=== PATIENT | male | born 1980 | race African-American/Black ===

== ENCOUNTER 2020-08-21 19:51 | Inpatient (IN) | payer OTHER, SELFPAY ==
[~2020-08-21] VITALS: Ht 172.7 cm; Wt 121.0 kg
[2020-08-21 23:00] VITALS: BP 164/88
[2020-08-21] MEDS ORDERED: ONDA8TAB8 PO (23:35)
[2020-08-21] MEDS ORDERED: CHLO25TA PO (23:35)
[2020-08-21] MEDS ORDERED: LORA-674 PO (23:35)
[2020-08-21] MEDS ORDERED: VITMTA PO (23:35)
[2020-08-21] MEDS ORDERED: HYDR50TA70 PO (23:35)
[2020-08-21] MEDS ORDERED: SERT50TA29 PO (23:35)
[2020-08-22] MEDS ORDERED: MAALOX 30 ML SUSP *UDC PO PRN (00:30)
[2020-08-22] MEDS ORDERED: ACETAMINOPHEN TAB 650MG DOSE (2X325MG) PO PRN (00:30)
[2020-08-22] MEDS ORDERED: NS 1,000 ML IV SCH ×2 (00:30→04:30)
[2020-08-22] MEDS ORDERED: ONDANSETRON 4MG/2ML VIAL IV PRN (00:30)
[2020-08-22] MEDS ORDERED: MOM 30ML SUSPENSION UDC PO PRN (00:30)
[2020-08-22 00:50] VITALS: BP 178/92
[2020-08-22 01:13] LABS: HEMATOCRIT 46.3 % (42.0-52.0); MEAN CORPUSCULAR HEMOGLOBIN 29.8 pg (27.0-33.0); MEAN CORPUSCULAR HGB CONC 32.4 g/dl (32.0-36.5); MEAN CORPUSCULAR VOLUME 91.9 fl (80.0-96.0); PLATELET COUNT, AUTOMATED 339 10^3/uL (150-450); RED BLOOD COUNT 5.04 10^6/uL (4.30-6.10)
[2020-08-22 01:29] LABS: ALBUMIN 4.1 GM/DL (3.2-5.2); ALT/SGPT 118 U/L (12-78); BILIRUBIN,TOTAL 0.6 MG/DL (0.2-1.0); BLOOD UREA NITROGEN 10 MG/DL (7-18); CALCIUM LEVEL 9.8 MG/DL (8.5-10.1); CARBON DIOXIDE LEVEL 27 MEQ/L (21-32); CHLORIDE LEVEL 103 MEQ/L (98-107); CREATININE FOR GFR 1.11 MG/DL (0.70-1.30); GLOMERULAR FILTRATION RATE > 60.0 (>60); GLUCOSE, FASTING 98 MG/DL (70-100); POTASSIUM SERUM 3.8 MEQ/L (3.5-5.1); SODIUM LEVEL 139 MEQ/L (136-145)
[2020-08-22 02:12] LABS: HEMOGLOBIN A1c 5.5 %
[2020-08-22] MEDS ORDERED: hydrOXYzine 50 MG TAB PO PRN (03:00)
--- NOTE | 2020-08-22 03:00 | HPEPDOC ---
[facility] Medical History & Physical Date of Admission Aug 22, 2020 Date of Service: Aug 22, [address] Stephan Jean M.D. General Surgery Attending Physician: TARI GARCIA MD History and Physical CHIEF COMPLAINT: Abdominal pain with nausea and vomiting HISTORY OF PRESENT ILLNESS: is a 40yo male with notable PMHx of HTN and anxiety who originally presented to [facility] on the afternoon of 08/21/2020 c/o diffuse, continuous abdominal pain with nausea and vomiting. He states that beginning on 08/19, he became quite nauseous after drinking his usual cup of vodka. During the day, he took a shot of alcohol and became nauseous again and this time ex perienced nonbloody emesis. On 08/20, he drank again, and again had emesis. On the morning of 08/21, he woke up around 4:30 AM with whole belly pain that was continuous. The pain was severe enough to force him to curl up on the floor. It was at this point in the day on 08/21 (about 2:30 PM) that he decided to head to [facility]. While en route to [place], he developed paresthesias of bilateral hands and feet. Once at [facility], he had another episode of emesis and was found to be hypertensive. He underwent imaging in the form of a CT abdomen and pelvis that showed moderate fatty infiltrate and supraumbilical hernia without incarceration or obstruction. He subsequently had an improvement in symptoms and no longer was feeling nauseated. The [place] provider contacted the [facility] on-call surgeon (Dr. Jean), and plan was to have patient follow-up as an outpatient. Unfortunately, he then developed a worsening of his abdominal pain and had another episode of emesis. He was at this point that Dr. Jean was contacted again and agreed to have the patient transferred to [facility] for further evaluation and to see him in consultation. Notable labs at [facility] included leukocytosis (WBC 12.9), transaminitis (ALT 151, AST 106), positive UDS for THC, ketonuria, and elevated anion gap (18). Upon presentation via transferred [facility], patient's abdominal pain was well- controlled and he was no longer feeling nauseated. He had been given a 0.2 mg dose of clonidine at [facility] for his elevated pressures, but likely vomited this out. He remained hypertensive with systolics ranging from 150s- 170s. Repeat CBC and CMP ordered. In the event surgical intervention is deemed warranted, the patient was preemptively placed on npo diet except meds, sips and chips. Upon transfer, patient confirms he is a full code. Denies any known drug or environmental allergies. PAST MEDICAL HISTORY: Essential hypertension Anxiety PAST SURGICAL HISTORY: Right shoulder surgery for rotator cuff and bony debris removal, occurred at least 10 or more years ago SOCIAL HISTORY: Lives in [place], [place] and works in the [employer] FAMILY HISTORY: Father: Hypertension Mother: CVA, hypertension One brother, NH, one brother hypertension ALLERGIES: Please see below. REVIEW OF SYSTEMS: CONSTITUTIONAL: Reports roughly 20 pound weight loss over the last 3 months and starting new behavioral health meds. Reports night sweats for the past month. Denies feeling feverish or chills EYES: Denies eye pain, visual changes ENT: Denies rhinorrhea, ear pain, tinnitus, dysphagia, or odynophagia CARDIOVASCULAR: Denies chest pain, as pressure, or palpitations RESPIRATORY: Denies cough, soreness of breath, or pleuritic chest pain GASTROINTESTINAL: Reports abdominal pain, nausea, and vomiting as detailed in HPI GENITOURINARY: Denies dysuria or hematuria NEUROLOGY: Reports hand and foot paresthesias since improved. Denies syncope, dizziness, loss of consciousness PSYCHIATRIC: Reports anxiety and associated depression per baseline. HOME MEDICATIONS: Please see below. PHYSICAL EXAMINATION: VITAL SIGNS: Temperature 98.3, pulse 104, respiratory rate 20, blood pressure 156/90, pulse oximetry 98% on room air. GENERAL: Pleasant, -Thai male lying in bed. No acute distress. Alert and oriented 3. HEENT: Normocephalic, atraumatic. Bilateral erythema of sclera with no appreciated icterus. No conjunctival pallor. Dry mucous membranes. No pharyngeal erythema or exudate. NECK: Supple. Trachea midline. No lymphadenopathy. RESPIRATORY: Bandar, diminished tidal volume with no appreciated adventitious breath sounds. Breathing room air. Speaking full sentences. CARDIOVASCULAR: Tachycardic rate, regular rhythm. Normal S1, S2. Murmur or rubs appreciated. ABDOMEN: Soft, obese. Moderate tenderness of the epigastrium and right lower quadrant. No guarding or rigidity. No tympany to percussion. Hypoactive bowel sounds present. EXTREMITIES: Bilateral lower extremities are free of edema. No clubbing or cyanosis. NEUROLOGICAL: Awake, alert and oriented 3. No focal neurologic deficits appr eciated. Non-dysarthric speech. PSYCHIATRIC: Mood and affect appear appropriate LABORATORY DATA: Please see below. IMAGING: CT abdomen and pelvis without IV contrast, 08/21/20 (*this was performed at [facility], [place], [place]) Reading impression from radiologist, Dr. Emerita M.D.: "2.5 cm fatcontaining supraumbilical hernia with some stranding consistent with inflammatory or ischemic changes of the herniated fat. Moderate fatty infiltration of the liver." MICROBIOLOGY: Please see below. ASSESSMENT & PLAN: This is a 40yo male w/ notable h/o HTN and anxiety who presented to [facility] in [place], [place] on 08/21/2020 with a chief complaints of diffuse continuous abdominal pain with nausea and vomiting that had progressed over the prior [address] abdomen and pelvis showed fatty liver as well as a supraumbilical hernia with some inflammatory/ischemic changes of herniated fat but not incarceration or strangulation. The [place] physician contacted Dr. Jean of [facility] general surgery service or guarding. Possible transfer, but at that initial time, patient's symptoms had improved to the point he was going to follow up as outpatient. Patient's symptoms subsequently worsened and he vomited again, ultimately prompting decision to transfer to [facility] for further evaluation for possible surgical intervention. #Abdominal pain with nausea and vomiting 2/2 gastroenteritis vs supraumbilical hernia with possible resolution of bowel incarceration vs gastroparesis -CT abdomen/pelvis at [facility] showed fatty liver and supraumbilical hernia with no incarceration or obstruction -WBC at [place] of 12.9; WBC was 14 after transfer to [facility]; Lactic 1.1 after transfer; pt afebrile -General surgery consultation (Dr. Jean) placed upon request of Dr. Jean after he collaboratively approved pt transfer with Dr. Bernardo at [place] -In the event surgical intervention is warranted, patient placed on NPO diet except for meds and sips/chips -Zofran ordered -Important to note that upon discharge, workup for uninvestigated dyspepsia may be warranted as patient is less than 60 years old, has had 20 pound weight loss over the past 3 months -IVF were initially held in the setting of hypertensive pressures #Transaminitis -ALT 151, AST 106 at [place]; after transfer to [facility], repeat measurement showed ALT 118, AST 61 -This is most likely secondary to patient's fatty liver; differential in addition to fatty liver includes viral and alcoholic hepatitis in setting of patient's alcohol use #Leukocytosis likely 2/2 GI inflammatory process -WBC at [place] of 12.9; WBC was 14 after transfer to [facility] -Lactic acid after transfer was 1.1; pt afebrile -IVF deferred in setting of elevated pressures and tachycardia upon transfer #Fatty liver -Seen on CT abdomen and pelvis at [facility]; described as a "moderate fatty infiltration." -Patient is a daily drinker and obese (BMI 40) #Essential hypertension -Patient was hypertensive upon transfer with systolics initially in the upper 170s that spontaneously came down to the 150s. -Patient's home chlorthalidone continued. He is also on hydroxyzine prn for anxiety, and this was continued as well -one-time dose of amlodipine ordered #Anxiety -Home sertraline and hydroxyzine continued -pt reports an unintentional 20 pound weight loss #Active smoker -Patient smokes 3-4 cigarettes per day, as well as marijuana -Smoking education ordered #Marijuana use -Positive THC on drug screen at [facility] -Patient reports smoking marijuana on most days -Marijuana may be contributing to patient's resenting emesis #Morbid obesity, BMI 40 -patient reports 20 pound weight loss over last 3 months -possible factor in fatty liver #DVT prophylaxis: TEDs and SCDs; AC deferred at admission in event surgical int ervention is deemed warranted Disposition: pending improvement with bowel rest and surgical evaluation Vital Signs Vital Signs Date Time Temp Pulse Resp B/P (MAP) Pulse Ox O2 Delivery O2 Flow Rate FiO2 08/22/20 00:50 118 178/92 (120) 08/21/20 23:00 98.3 20 98 Room Air Laboratory Data Labs 24H Laboratory Tests 2 08/22/20 00:49: Nucleated Red Blood Cells % (auto) 0.0, Anion Gap 9, Glomerular Filtration Rate > 60.0, Estimated Mean Plasma Glucose 111H, Hemoglobin A1c 5.5, Calcium Level 9.8, Total Bilirubin 0.6, Aspartate Amino Transf (AST/SGOT) 61H, Alanine Aminotransferase (ALT/SGPT) 118H, Alkaline Phosphatase 81, Total Protein 8.0, Albumin 4.1, Albumin/Globulin Ratio 1.1 CBC/BMP Laboratory Tests 08/22/20 00:49 Home Medications Scheduled Chlorthalidone (Chlorthalidone) 25 Mg Tablet, 25 MG PO DAILY Loratadine (Loratadine) 10 Mg Tablet, 10 MG PO DAILY Multivitamins (Thera M Plus Tablet) 1 Each Tablet, 1 TAB PO DAILY Omeprazole (Omeprazole) 40 Mg Capsule.dr, 40 MG PO DAILY Sertraline HCl (Sertraline HCl) 50 Mg Tablet, 50 MG PO DAILY Scheduled PRN Hydroxyzine HCl (Hydroxyzine HCl) 50 Mg Tablet, 50 MG PO Q8H PRN for ANXIETY Ondansetron (Ondansetron Odt) 8 Mg Tab.rapdis, 8 MG PO Q8H PRN for NAUSEA Ondansetron HCl (Zofran) 4 Mg Tablet, 4 MG PO Q6-8HP PRN for nausea/vomiting Allergies Coded Allergies: No Known Allergies (Verified Allergy, Unknown, 08/21/20) A-FIB/CHADSVASC A-FIB History Current/History of A-Fib/PAF?: No Current PO Anticoag Therapy: No GME ATTESTATION GME ATTESTATION My faculty preceptor for this patient encounter was physically present during the encounter and was fully available. All aspects of the patient interview, examination, medical decision making process, and medical care plan development were reviewed and approved by the faculty preceptor. The faculty preceptor is aware and concurs with the plan as stated in the body of this note and will attest to such by his/her cosignature. ATTENDING NOTE TIME OF SERVICE 311 AM Mr. Chavis is a 40 yr old w a hx of HTN for over 20 yrs who presented to [facility] w c/o n/v for 3 months and abd pain for 1 day; he and was found to have transaminitis; CT of the abdomen showed a hernia w/o strangulation. Transfer was requested for surgical consult. Admitting Diagnosis: #SIRS (tachycardia and leukocytosis) possibly due to GI infection vs reactive / pending blood cx, lactic acid, UA the day time team may consider starting empiric metronidazole # N/V abd pain, possibly 2/2 dyspepsia f/u w / pt may need GI eval for EGD #Fatty Liver f/u lipid panel #Secondary HTN should be referred to HTN specialist for a work-up for secondary causes of HTN #Tobacco abuse- smoking cessation education Rest per Dr.Schwarzs Morris&P CARLOS A GALINDO D.O. Aug 22, 2020 03:00 TARI GARCIA MD Aug 22, 2020 04:12
[2020-08-22] MEDS ORDERED: GLUCOSE 4GM CHEW TABLET PO PRN (03:15)
[2020-08-22] MEDS ORDERED: GLUCAGON INJ 1MG VIAL SC PRN (03:15)
[2020-08-22] MEDS ORDERED: DEXTROSE 50% 50 ML SYRINGE IV PRN (03:15)
[2020-08-22] MEDS ORDERED: amLODIPine 5 MG TAB PO ONE (03:15)
[2020-08-22 03:30] VITALS: BP 156/90
[2020-08-22 03:40] VITALS: BP 156/90
[2020-08-22 03:42] LABS: FREE T4 0.92 NG/DL (0.76-1.46)
[2020-08-22] MEDS ORDERED: SODIUM CHLORIDE 0.9% 1000ML IV ONE (04:15)
[2020-08-22 04:36] LABS: CHOLESTEROL LEVEL 315 MG/DL (<200); CHOLESTEROL RISK RATIO 5.163 (<5); HDL CHOLESTEROL 61 MG/DL (>40); LDL CHOLESTEROL 235 MG/DL (<100); NON-HDL-C 254 MG/DL; TRIGLYCERIDES LEVEL 94 MG/DL (<150)
[2020-08-22 06:00] VITALS: BP 156/88
[2020-08-22 08:41] LABS: BASO # 0.1 10^3/uL (0.0-0.2); BASO % 0.5 % (0.0-1.0); EOS # 0.1 10^3/uL (0.0-0.5); EOS % 0.4 % (0.0-3.0); HEMATOCRIT 45.6 % (42.0-52.0); HEMOGLOBIN 15.1 g/dl (13.5-17.5); LYMPH # 2.4 10^3/uL (1.5-5.0); LYMPH % 18.5 % (24.0-44.0); MEAN CORPUSCULAR HEMOGLOBIN 31.4 pg (27.0-33.0); MEAN CORPUSCULAR HGB CONC 33.1 g/dl (32.0-36.5); MEAN CORPUSCULAR VOLUME 94.8 fl (80.0-96.0); MONO # 1.2 10^3/uL (0.0-0.8); MONO % 9.4 % (0.0-5.0); NEUTROPHILS # 9.4 10^3/uL (1.5-8.5); NEUTROPHILS % 70.7 % (36.0-66.0); PLATELET COUNT, AUTOMATED 328 10^3/uL (150-450); RED BLOOD COUNT 4.81 10^6/uL (4.30-6.10); WHITE BLOOD COUNT 13.2 10^3/uL (4.0-10.0)
[2020-08-22 08:50] LABS: ALBUMIN 3.8 GM/DL (3.2-5.2); ALT/SGPT 111 U/L (12-78); BILIRUBIN,TOTAL 0.7 MG/DL (0.2-1.0); BLOOD UREA NITROGEN 10 MG/DL (7-18); CALCIUM LEVEL 9.1 MG/DL (8.5-10.1); CARBON DIOXIDE LEVEL 28 MEQ/L (21-32); CHLORIDE LEVEL 102 MEQ/L (98-107); CREATININE FOR GFR 1.17 MG/DL (0.70-1.30); GLOMERULAR FILTRATION RATE > 60.0 (>60); GLUCOSE, FASTING 91 MG/DL (70-100); MAGNESIUM LEVEL 2.5 MG/DL (1.8-2.4); POTASSIUM SERUM 3.5 MEQ/L (3.5-5.1); SODIUM LEVEL 139 MEQ/L (136-145); TOTAL PROTEIN 7.8 GM/DL (6.4-8.2)
[2020-08-22] MEDS ORDERED: SERTRALINE HCL 50 MG TAB PO SCH (09:00)
[2020-08-22] MEDS ORDERED: CHLORTHALIDONE 25 MG TAB PO SCH (09:00)
[2020-08-22] MEDS ORDERED: LORATADINE 10 MG TAB PO SCH (09:00)
[2020-08-22] MEDS ORDERED: MULTIVITAMINS/MINERALS THERAP 1 TAB PO SCH (09:00)
[2020-08-22] MEDS ORDERED: OMEP40CA97 PO (09:21)
[2020-08-22] MEDS ORDERED: ZOFR4TAB16 PO (09:21)
[2020-08-22] MEDS ORDERED: OMEPRAZOLE 20 MG CAP PO ONE (11:00)
--- NOTE | 2020-08-22 12:18 | DS.PDOC ---
Discharge Summary General Date of Admission Aug 21, 2020 at 22:51 Date of Discharge 08/22/20 Discharge Summary PROCEDURES PERFORMED DURING STAY: [None]. ADMITTING DIAGNOSES: Abdominal pain with nausea and vomiting Transaminitis Leukocytosis Fatty liver Essential hypertension Anxiety Active smoker Marijuana use Morbid obesity, BMI 40 DISCHARGE DIAGNOSES: Abdominal pain with nausea and vomiting Transaminitis Leukocytosis Fatty liver Essential hypertension Anxiety Active smoker Marijuana use Morbid obesity, BMI 40 COMPLICATIONS/CHIEF COMPLAINT: Cholecystitis. HISTORY OF PRESENT ILLNESS: Alfredo is a 40yo male with notable PMHx of HTN and anxiety who originally presented to [facility] on the afternoon of 08/21/2020 c/o diffuse, continuous abdominal pain with nausea and vomiting. He states that beginning on 08/19, he became quite nauseous after drinking his usual cup of vodka. During the day, he took a shot of alcohol and became n auseous again and this time experienced nonbloody emesis. On 08/20, he drank again, and again had emesis. On the morning of 08/21, he woke up around 4:30 AM with whole belly pain that was continuous. The pain was severe enough to force him to curl up on the floor. It was at this point in the day on 08/21 (about 2:30 PM) that he decided to head to [facility]. While en route to [place], he developed paresthesias of bilateral hands and feet. Once at [facility], he had another episode of emesis and was found to be hypertensive. He underwent imaging in the form of a CT abdomen and pelvis that showed moderate fatty infiltrate and supraumbilical hernia without incarceration or obstruction. He subsequently had an improvement in symptoms and no longer was feeling nauseated. The [place] provider contacted the [facility] on-call surgeon (Dr. Jean), and plan was to have patient follow-up as an outpatient. Unfortunately, he then developed a worsening of his abdominal pain and had another episode of emesis. He was at this point that Dr. Jean was contacted again and agreed to have the patient transferred to [facility] for further evaluation and to see him in consultation. Notable labs at [facility] included leukocytosis (WBC 12.9), transaminitis (ALT 151, AST 106), positive UDS for THC, ketonuria, and elevated anion gap (18). Upon presentation via transferred [facility], patient's abdominal pain was well- controlled and he was no longer feeling nauseated. He had been given a 0.2 mg dose of clonidine at [facility] for his elevated pressures, but likely vomited this out. He remained hypertensive with systolics ranging from 150s- 170s. Repeat CBC and CMP ordered. In the event surgical intervention is deemed warranted, the patient was preemptively placed on npo diet except meds, sips and chips. HOSPITAL COURSE: Patient was evaluated by surgical team. No acute pathology was found. Most likely patient developed gastritis secondary to alcohol abuse. Recommended PPI, stop smoking marijuana and stop drinking alcohol. DISCHARGE MEDICATIONS: Please see below. ALLERGIES: Please see below. PHYSICAL EXAMINATION ON DISCHARGE: VITAL SIGNS: Please see below. VITAL SIGNS: Temperature 98.3, pulse 104, respiratory rate 20, blood pressure 156/90, pulse oximetry 98% on room air. GENERAL: Pleasant, -Malawian male lying in bed. No acute distress. Alert and oriented 3. HEENT: Normocephalic, atraumatic. Bilateral erythema of sclera with no appreciated icterus. No conjunctival pallor. Dry mucous membranes. No pharyngeal erythema or exudate. NECK: Supple. Trachea midline. No lymphadenopathy. RESPIRATORY: Bandar, diminished tidal volume with no appreciated adventitious breath sounds. Breathing room air. Speaking full sentences. CARDIOVASCULAR: Tachycardic rate, regular rhythm. Normal S1, S2. Murmur or rubs appreciated. ABDOMEN: Soft, obese. No guarding or rigidity. No tympany to percussion. Hypoactive bowel sounds present. EXTREMITIES: Bilateral lower extremities are free of edema. No clubbing or cyanosis. NEUROLOGICAL: Awake, alert and oriented 3. No focal neurologic deficits appreciated. Non-dysarthric speech. PSYCHIATRIC: Mood and affect appear appropriate LABORATORY DATA: Please see below. IMAGING: See above PROGNOSIS: Good ACTIVITY: [As tolerated]. DIET: Regular DISPOSITION: 01 Home, Self-Care. DISCHARGE INSTRUCTIONS: Stop drinking alcohol and stop smoking marijuana ITEMS TO FOLLOWUP ON ON OUTPATIENT: Follow-up with PCP DISCHARGE CONDITION: [Stable]. TIME SPENT ON DISCHARGE: Greater than 20 minutes. Vital Signs/I&Os Vital Signs Date Time Temp Pulse Resp B/P (MAP) Pulse Ox O2 Delivery O2 Flow Rate FiO2 08/22/20 06:00 98.1 102 19 156/88 (110) 98 Room Air I&O- Last 24 Hours up to 6 AM 08/22/20 06:00 Intake Total 180 ml Output Total 75 ml Balance 105 ml Laboratory Data Labs 24H Laboratory Tests 2 08/22/20 00:49: Nucleated Red Blood Cells % (auto) 0.0, Anion Gap 9, Glomerular Filtration Rate > 60.0, Estimated Mean Plasma Glucose 111H, Hemoglobin A1c 5.5, Calcium Level 9.8, Total Bilirubin 0.6, Aspartate Amino Transf (AST/SGOT) 61H, Alanine Aminotransferase (ALT/SGPT) 118H, Alkaline Phosphatase 81, Total Protein 8.0, Albumin 4.1, Albumin/Globulin Ratio 1.1, Triglycerides Level 94, Total Cholesterol 315H, LDL Cholesterol 235H, Non-HDL Cholesterol (LDL + VLDL) 254, Total HDL Cholesterol 61, Cholesterol/HDL Ratio 5.163H, Thyroid Stimulating Hormone (TSH) 1.710, Free Thyroxine 0.92 08/22/20 03:27: Bedside Glucose (Misc Panel) 100 08/22/20 05:00: Nucleated Red Blood Cells % (auto) 0.0, Anion Gap 9, Glomerular Filtration Rate > 60.0, Calcium Level 9.1, Total Bilirubin 0.7, Aspartate Amino Transf (AST/SGOT) 48H, Alanine Aminotransferase (ALT/SGPT) 111H, Alkaline Phosphatase 77, Total Protein 7.8, Albumin 3.8, Albumin/Globulin Ratio 1.0, Immature Granulocyte % (Auto) 0.5, Neutrophils (%) (Auto) 70.7H, Lymphocytes (%) (Auto) 18.5L, Monocytes (%) (Auto) 9.4H, Eosinophils (%) (Auto) 0.4, Basophils (%) (Auto) 0.5, Neutrophils # (Auto) 9.4H, Lymphocytes # (Auto) 2.4, Monocytes # (Auto) 1.2H, Eosinophils # (Auto) 0.1, Basophils # (Auto) 0.1, Magnesium Level 2.5H 08/22/20 05:02: Lactic Acid Level 1.0 CBC/BMP Laboratory Tests 08/22/20 00:49 08/22/20 05:00 FSBS Laboratory Tests Test 08/22/20 03:27 Range/Units Bedside Glucose (Misc Panel) 100 70-105 MG/DL Microbiology Microbiology 08/22/20 Blood Culture, Received Pending Discharge Medications Scheduled Chlorthalidone (Chlorthalidone) 25 Mg Tablet, 25 MG PO DAILY, (Reported) Loratadine (Loratadine) 10 Mg Tablet, 10 MG PO DAILY, (Reported) Multivitamins (Thera M Plus Tablet) 1 Each Tablet, 1 TAB PO DAILY, (Reported) Omeprazole (Omeprazole) 40 Mg Capsule.dr, 40 MG PO DAILY Sertraline HCl (Sertraline HCl) 50 Mg Tablet, 50 MG PO DAILY, (Reported) Scheduled PRN Hydroxyzine HCl (Hydroxyzine HCl) 50 Mg Tablet, 50 MG PO Q8H PRN for ANXIETY, (Reported) Ondansetron (Ondansetron Odt) 8 Mg Tab.rapdis, 8 MG PO Q8H PRN for NAUSEA, (Reported) Ondansetron HCl (Zofran) 4 Mg Tablet, 4 MG PO Q6-8HP PRN for nausea/vomiting Allergies Coded Allergies: No Known Allergies (Verified Allergy, Unknown, 08/21/20) ÁNGEL CASTELAN DO Aug 22, 2020 12:17
--- NOTE | 2020-08-22 15:30 | CR ---
CONSULTATION DATE: 08/22/2020 REASON FOR CONSULTATION: Abdominal pain and vomiting. HISTORY OF PRESENT ILLNESS: The patient tells me that he has had an upset stomach for as long as several months since being started on a new medication or a new pair of medications for some anxiety and depression. He also admits to liking his vodka and reports he drinks up to a half a bottle of vodka daily. He reports he stopped this about 2 days ago. Yesterday he awoke with abdominal pain which he described as fairly diffuse. He was seen at [facility]. He had some emesis. He had a CT scan of the abdomen and pelvis which showed a small supraumbilical fat containing hernia. There were no other obvious abnormalities. His labs were notable only for some minimal elevations of his AST and ALT with a normal bilirubin and alkaline phosphatase. I spoke with Prabhakar Ariza the P.A. at [facility] about this patient, and we discussed his labs and his CT scan results and physical findings in detail. I did not think his hernia was of any clinical significance as it was reported that he had no tenderness in the area of the hernia, and the P.A. reported that it was actually not even palpable. I suggested that the symptoms sounded more like gastroenteritis and that they may wish to consider discharge home. Apparently the [facility] contacted [facility] again slightly later and I called the now different provider caring for him at [facility], who reported that he had had another episode of some emesis. I recommended that if they thought he needed to be transferred for care it should be to the Medicine Service as there was no evidence of any surgical problem. He was subsequently transferred and I was consulted. ALLERGIES: The patient denies any drug allergies. MEDICATIONS: The patient's current medications include" 1. Chlorthalidone. 2. Hydroxyzine. 3. Loratadine. 4. Multivitamin. 5. Zofran as needed. 6. Sertraline. PAST AL HISTORY: The patient's past medical history is significant for: 1. Some hypertension. 2. History of anxiety. 3. He does admit to me that he drinks half a bottle of vodka daily and has been doing this pretty regularly. PAST SURGICAL HISTORY: The patient's past surgical history is significant for surgery on his right shoulder many years ago. He denies any abdominal surgery of any kind. FAMILY HISTORY: The patient's family history is apparently significant for some hypertension. REVIEW OF SYSTEMS: No history of chest pain or palpitations. He denies any cough, wheezing or sputum production. He does have intermittent episodes of vomiting. He reports that he takes his medications in the morning and often he will vomit after lunch, usually just some bilious material. He denies any history of peptic ulcer disease, hepatitis, pancreatitis or jaundice. He denies any dysuria or hematuria. He has no muscle or joint problems. PHYSICAL EXAMINATION: VITAL SIGNS: The patient's most recent vital signs show him to be afebrile with a temperature of 98.1, pulse is 102, respirations are 19 and his blood pressure is 156/88. GENERAL APPEARANCE: He is a pleasant gentleman, lying quietly in the hospital bed. He is alert and oriented. He clearly has some obesity. HEENT: Sclerae are anicteric. Mucous membranes are moist. NECK: supple. HEART: Regular rate and rhythm. LUNGS: Clear. ABDOMEN: Somewhat obese. He has bowel sounds present. The abdomen is soft throughout and there is no tenderness. His known supraumbilical midline hernia is not palpable and there is no tenderness in this area. EXTREMITIES: Without edema. SKIN: Warm and dry. LABORATORY STUDIES: White count of 13.2 this morning with a differential showing 71% neutrophils, 18% lymphocytes and 9% monocytes. Hemoglobin is 15 with a hematocrit of 46 and his platelet count is 328,000. Chemistry profile is normal. His AST is 48 with an ALT of 111 but his total bilirubin is 0.7 with an alkaline phosphatase of 77. IMAGING: I reviewed his CT scan images from [facility]. He does have a small fat containing supraumbilical midline hernia. There is no evidence of herniation by bowel. His gallbladder is normal size. There are no abnormal calcifications noted within the gallbladder or in the genitourinary tract. There are no signs of inflammation elsewhere and there is certainly no free air or free fluid. IMPRESSION: 1. Abdominal pain with some intermittent nausea and vomiting of unclear etiology, but certainly without any evidence of surgical cause. 2. Asymptomatic supraumbilical midline hernia. 3. Excessive alcohol use. 4. Anxiety. 5. Hypertension. RECOMMENDATIONS: There is clearly no indication for any surgical intervention at this time. He has a small hernia which is asymptomatic and does not require treatment at this point. He is very open about his large intake of vodka daily and this I advised him will cause him lasting problems if continued [facility]. He is on some anxiety medications and I think this may be a large factor in some of his symptoms. I will defer to the Hospitalist service regarding further evaluation and treatment. He does not need to follow up in the office with me but should follow up with his primary provider after discharge. CLE[facility]
[2020-08-25 10:16] LABS: VITAMIN B12 LEVEL 632 PG/ML (247-911)
== END 2020-08-22 11:14 | disposition home or self-care (01) | DRG 251 ==
LOC: M MSPAV 22:51
PROVIDERS: ADMIT Internal Medicine; ATTEND Internal Medicine
DX: R10.9 Unspecified abdominal pain (principal); Z68.41 Body mass index [BMI] 40.0-44.9, adult; I10 Essential (primary) hypertension; E66.01 Morbid (severe) obesity due to excess calories; R11.2 Nausea with vomiting, unspecified; F41.9 Anxiety disorder, unspecified; F17.200 Nicotine dependence, unspecified, uncomplicated; F12.90 Cannabis use, unspecified, uncomplicated; D72.829 Elevated white blood cell count, unspecified; Z79.899 Other long term (current) drug therapy